=== PATIENT | female | born 1945 | race Caucasian/White ===

== ENCOUNTER → 2016-08-19 | Outpatient (CLI) | payer OTHER | END | disposition home or self-care (01) | LOC: PCVCCLINIC 14:46 | PROVIDERS: ATTEND Internal Medicine Cardiovascular Disease | DX: E78.5 Hyperlipidemia, unspecified (principal); I25.10 Atherosclerotic heart disease of native coronary artery without angina pectoris; I10 Essential (primary) hypertension; M79.7 Fibromyalgia; I77.9 Disorder of arteries and arterioles, unspecified | CPT/HCPCS: G0463 ==

== ENCOUNTER → 2016-11-04 | Outpatient (CLI) | payer OTHER | LOC: PCVCCLINIC 15:30 | PROVIDERS: ATTEND Internal Medicine Cardiovascular Disease | DX: E78.5 Hyperlipidemia, unspecified (principal); I25.10 Atherosclerotic heart disease of native coronary artery without angina pectoris; M79.7 Fibromyalgia; I10 Essential (primary) hypertension; I77.9 Disorder of arteries and arterioles, unspecified; G89.29 Other chronic pain | CPT/HCPCS: 80061; 93005; G0463 ==

== ENCOUNTER → 2017-06-13 | Outpatient (CLI) | payer OTHER | END | disposition home or self-care (01) | LOC: PCVCCLINIC 15:01 | PROVIDERS: ATTEND Internal Medicine Cardiovascular Disease | DX: I25.10 Atherosclerotic heart disease of native coronary artery without angina pectoris (principal); I10 Essential (primary) hypertension; T73.3XXA Exhaustion due to excessive exertion, initial encounter; R06.09 Other forms of dyspnea; E78.00 Pure hypercholesterolemia, unspecified; E11.9 Type 2 diabetes mellitus without complications; M79.7 Fibromyalgia; R94.31 Abnormal electrocardiogram [ECG] [EKG]; Z79.82 Long term (current) use of aspirin; Z79.899 Other long term (current) drug therapy | CPT/HCPCS: 80061; 93005; G0463 ==

== ENCOUNTER → 2017-06-29 | Outpatient (CLI) | payer OTHER ==
[~2017-06-29] MED LIST: REGADENOSON 0.4 MG/5 ML DISP.SYRIN. IV ONE
--- NOTE | 2017-06-29 18:58 | PCVCIMAG ---
APPROVED REPORT Exam: Nuclear Stress Test Indication: CAD , Dyspnea Patient Location: Out-Patient Stress Nurse: Brooke Hernandez RN, Beena Cain RN [place] Tech:ARLENE Castellano Ht: 5 ft 2 in Wt: 204 lbs BSA: 1.93 m2 HR: 102 bpm BP: 146/77 mmHg BMI: 37.3 Rhythm: ST T-WAVE ABN Medical History Medical History: AGE, HYPERLIPIDEMIA, HTN, CAD, DM Allergies: IBUPROFEN Pretest Chest Pain Characteristics: No chest pain NM EXAM: Myocardial Perfusion REST/STRESS Imaging Protocol: Rest Tc-99m/Stress Tc-99m 1 day Resting Data Rest SPECT myocardial perfusion imaging was performed in supine position 45 minutes following the intravenous injection of 15.5 mCi of Tc-99m Sestamibi. Time of rest injection: 919 Date: 06/29/2017 Administration Route: IV Administration Site: Right AC Pharmacologic Stress Pharmacologic stress test was performed by injecting Regadenoson 0.4 mg IV push followed by the intravenous injection of 44.1 mCi of Tc-99m Sestamibi. Time of stress injection: 1110 Date: 06/29/2017 Administration Route: IV Administration Site: Right AC Gated Stress SPECT was performed 45 minutes after stress injection. The images were gated to evaluate regional wall motion and calculate left ventricular ejection fraction. Study Quality Study: Good Study Data Post stress, the left ventricular ejection was 83%.. SSS: 0 SRS: 2 SDS: 0 TID = 1.69. Perfusion No evidence of stress induced ischemia or prior myocardial infarction. Post stress left ventricular chamber dilatation is nonspecific but may be seen with multivessel coronary artery disease. Nuclear Conclusion No evidence of stress induced ischemia or prior myocardial infarction. Post stress left ventricular chamber dilatation is nonspecific but may be seen with multivessel coronary artery disease. This has developed since November 2015. Interpreted by: Dewey Paulson MD Electronically Approved: 06/29/2017 15:55:32 Stress Test Details Stress Test: Pharmacologic stress testing performed using 0.4 mg of regadenoson per 5 mL given IV over 10 seconds. Reason for pharmacologic stress test: physical limitation. HR Resting HR: 102 bpmMax Heart Rate (APMHR): 149 bpm Max HR Achieved: 137 bpmTarget HR (85% APMHR): 126 bpm % of APMHR: 91 Recovery HR: 121 bpm BP Resting BP: 146/77 mmHg Max BP: 162/77 mmHg ECG Resting ECG: Sinus Rhythm, NSSTT changes Stress ECG: Sinus Rhythm, NSSTT changes Clinical Reason for Termination: Completed protocol Stress Symptoms: Dyspnea, Chest Heaviness, Jaw Pain, Nausea Exercise duration: 0 min 55 sec Symptoms resolved during recovery with caffeine. Stress ECG Conclusion ECG: Non-ischemic <Conclusion> ECG: Non-ischemic
== END | disposition home or self-care (01) ==
LOC: PCVCIMAG 08:56
PROVIDERS: ATTEND Internal Medicine Cardiovascular Disease
DX: I25.10 Atherosclerotic heart disease of native coronary artery without angina pectoris (principal); I10 Essential (primary) hypertension; R06.00 Dyspnea, unspecified
CPT/HCPCS: 78452; 93017; A9500; J2785

== ENCOUNTER → 2017-12-21 | Outpatient (CLI) | payer OTHER | END | disposition home or self-care (01) | LOC: PCVCCLINIC 14:43 | DX: I25.118 Atherosclerotic heart disease of native coronary artery with other forms of angina pectoris (principal); E78.5 Hyperlipidemia, unspecified; I10 Essential (primary) hypertension; R06.02 Shortness of breath; R53.83 Other fatigue; F32.9 Major depressive disorder, single episode, unspecified; Z79.899 Other long term (current) drug therapy; Z79.82 Long term (current) use of aspirin | CPT/HCPCS: 80061; 93005; G0463 ==

== ENCOUNTER → 2018-06-28 | Outpatient (CLI) | payer OTHER | END | disposition home or self-care (01) | LOC: PCVCCLINIC 12:48 | PROVIDERS: ATTEND Internal Medicine Cardiovascular Disease | DX: I25.10 Atherosclerotic heart disease of native coronary artery without angina pectoris (principal); I10 Essential (primary) hypertension; E78.00 Pure hypercholesterolemia, unspecified; I65.23 Occlusion and stenosis of bilateral carotid arteries; E11.9 Type 2 diabetes mellitus without complications; R06.02 Shortness of breath; E78.5 Hyperlipidemia, unspecified | CPT/HCPCS: 36415; 80061; 93005; G0463 ==

== ENCOUNTER → 2018-07-13 | Outpatient (CLI) | payer OTHER ==
--- NOTE | 2018-07-13 16:52 | PCVCIMAG ---
APPROVED REPORT Imaging Protocol: Rest Tc-99m/Stress Tc-99m 1 day Study performed: 07/13/2018 08:58:18 Indication: CAD , Dyspnea, Chest pain Patient Location: Out-Patient Stress Nurse: Brooke Hernandez RN, Beena Cain RN [place] Tech:Elizabeth DAWN HedrickMT Ht: 5 ft 2 in Wt: 199 lbs BSA: 1.91 m2 HR: 86 bpm BP: 169/81 mmHg BMI: 36.3 Rhythm: Sinus Rhythm, LBBB Medical History Medical History: Sinus Rhythm, LBBB, T wave Abn Medications: Atenolol, Losartan, Crestor, Yosprala Allergies: Motrin Cardiac Risk Factors: Age Previous Cardiac Procedures: PCI in 2017 - mid LAD Pretest Chest Pain Characteristics: No chest pain Exercise History: Sedentary Physical Disabilities: Hips, Knees Meds Held (24 hrs): Atenolol Resting Data Rest SPECT myocardial perfusion imaging was performed in supine position 45 minutes following the intravenous injection of 13.8 mCi of Tc-99m Sestamibi. Time of rest injection: 0900 Date: 07/13/2018 Administration Route: IV Administration Site: Right AC Pharmacologic Stress Pharmacologic stress test was performed by injecting Regadenoson 0.4 mg IV push over 10-15 seconds immediately followed by the intravenous injection of 45.5 mCi of Tc-99m Sestamibi. Time of stress injection: 1040 Date: 07/13/2018 Administration Route: IV Administration Site: Right AC Gated Stress SPECT was performed 45 minutes after stress injection. The images were gated to evaluate regional wall motion and calculate left ventricular ejection fraction. Comments Prior Nuclear Stress test 2017: Non-ischemic Stress Test Details Stress Test: Pharmacologic stress testing performed using 0.4 mg of regadenoson per 5 mL given IV over 10 seconds. Reason for pharmacologic stress test: knee and hip issues. HRMax Heart Rate (APMHR): 148 bpm Resting HR: 86 bpmTarget HR (85% APMHR): 125 bpm Max HR Achieved: 116 bpm % of APMHR: 78 Recovery HR: 108 bpm BP Resting BP: 169/81 mmHg Max BP: 164/71 mmHg Recovery BP: 148/77 mmHg ECG Resting ECG: Sinus Rhythm, LBBB, T wave Abn Stress ECG: Sinus Tachycardia, LBBB, T wave Abn Recovery ECG: Sinus Tachycardia, LBBB, T wave Abn Clinical Reason for Termination: Completed protocol Stress Symptoms: Dyspnea Exercise duration: 0 min 55 sec Symptoms resolved with caffeine. Stress ECG Conclusion ECG: Non-ischemic Study Quality Study: Good Study Data Post stress, the left ventricular ejection was 75%.. SSS: 0 SRS: 2 SDS: 0 TID = 0.97. Perfusion No evidence of stress induced ischemia or prior myocardial infarction. Wall Motion Normal left ventricular size and function with no regional wall motion abnormalities. Nuclear Conclusion No evidence of stress induced ischemia or prior myocardial infarction. Normal left ventricular size and function with no regional wall motion abnormalities. Post stress, the left ventricular ejection was 75%. No change since prior study dated November 2015 or June 2017. Interpreted by: Dewey Paulson MD Electronically Approved: 07/13/2018 16:17:31 <Conclusion> ECG: Non-ischemic
== END | disposition home or self-care (01) ==
LOC: PCVCIMAG 08:47
PROVIDERS: ATTEND Internal Medicine Cardiovascular Disease
DX: I25.10 Atherosclerotic heart disease of native coronary artery without angina pectoris (principal); R07.9 Chest pain, unspecified; I44.7 Left bundle-branch block, unspecified; R06.09 Other forms of dyspnea; E11.9 Type 2 diabetes mellitus without complications
CPT/HCPCS: 78452; 93017; A9500; J2785

== ENCOUNTER → 2019-02-14 | Outpatient (CLI) | payer OTHER | END | disposition home or self-care (01) | LOC: PCVCCLINIC 13:00 | PROVIDERS: ATTEND Internal Medicine Cardiovascular Disease | DX: I25.10 Atherosclerotic heart disease of native coronary artery without angina pectoris (principal); I44.7 Left bundle-branch block, unspecified; E78.00 Pure hypercholesterolemia, unspecified; I10 Essential (primary) hypertension; M79.7 Fibromyalgia; E11.9 Type 2 diabetes mellitus without complications; E78.5 Hyperlipidemia, unspecified; Z79.82 Long term (current) use of aspirin; Z79.84 Long term (current) use of oral hypoglycemic drugs | CPT/HCPCS: 36415; 80061; 93005; G0463 ==